=== PATIENT | female | born 1980 | race African-American/Black ===

== ENCOUNTER 2020-01-27 14:11 | Emergency (ER) | payer MEDICAID ==
[~2020-01-27] VITALS: Ht 172.7 cm; Wt 70.3 kg
[2020-01-27] MEDS ORDERED: MEDROL DOSEPAK4 MG ORAL (14:32)
[2020-01-27 14:34] VITALS: BP 114/77
--- NOTE | 2020-01-27 14:37 | NUR ---
ED Nurse Note:pt. came with c/o upper back and shoulders pain for 1 month no injury reported
[2020-01-27] MEDS ORDERED: Ketorolac 30mg Inj IM ONE (14:45)
[2020-01-27] MEDS ORDERED: Methocarbamol 750mg tab ORAL ONE (14:45)
--- NOTE | 2020-01-27 15:03 | Emergency Room Report ---
History of Present Illness General Chief Complaint: Back Pain-No Injury Source: Patient Present Illness HPI 39-year-old female with no signal past medical history here complaining of pain in neck and bilateral shoulders x6 months. Reports that she often lifts heavy objects and has been feeling some numbness intermittently in the arms after lifting boxes. Patient reports that she just moved to [place] from [place] and has not established a primary doctor. Patient denies any fall or injury. Has full range of motion and no bony tenderness noted. No impingement sign noted. Denies chest pain, shortness of breath, headache and dizziness. The pain is localized to upper back mainly the neck and has range of motion. Has not taken medication for symptom relief. Denies . Patient is neurovascularly intact Allergies: Coded Allergies: No Known Allergies (Unverified , 01/27/20) COVID-19 Screening Contact w/high risk pt: No Recent Travel to affected area: No Experienced COVID-19 symptoms?: No COVID-19 Testing performed STAGE PRODUCER: No Patient History Past Medical History: see triage record Past Surgical History: none Pertinent Family History: none Now: No Immunizations: UTD Reviewed Nursing Documentation: PMH: Agreed; PSxH: Agreed Nursing Documentation-PMH Past Medical History: No Stated History Review of Systems All Other Systems: negative except mentioned in HPI Physical Exam Vital Signs Date Time Temp Pulse Resp B/P (MAP) Pulse Ox O2 Delivery O2 Flow Rate FiO2 01/27/20 14:28 98.6 66 18 114/77 (89) 97 Room Air Sp02 EP Interpretation: reviewed, normal General Appearance: no apparent distress, alert, GCS 15, non-toxic Head: normocephalic, atraumatic Eyes: bilateral eye normal inspection, bilateral eye PERRL ENT: hearing grossly normal, normal pharynx, no angioedema, normal voice Neck: full range of motion, supple, thyroid normal, no meningismus, no bony tend, no carotid bruits, supple/symm/no masses Respiratory: chest non-tender, lungs clear, normal breath sounds, speaking full sentences Cardiovascular #1: regular rate, rhythm, no edema Cardiovascular #2: 2+ carotid (R), 2+ carotid (L), 2+ radial (R), 2+ radial (L) Gastrointestinal: normal bowel sounds, non tender, soft, non-distended, no guarding, no rebound Rectal: deferred Genitourinary: no CVA tenderness Musculoskeletal: back normal, normal range of motion, no calf tenderness, pelvis stable, no lower extremity edema, non-tender, other - Patient has range of motion of neck and the bilateral arms and no bony tenderness noted, no impingement sign noted Neurologic: alert, motor strength/tone normal, oriented x3, sensory intact, responsive, speech normal Psychiatric: judgement/insight normal, memory normal, mood/affect normal, no suicidal/homicidal ideation Skin: no rash Lymphatic: no adenopathy Medical Decision Making PA Attestation All diagnoses and treatment plans were reviewed and discussed with my supervising physician Dr. Anderson Diagnostic Impression: Primary Impression: Cervical strain ER Course 39-year-old female with no signal past medical history here complaining of pain in neck and bilateral shoulders x6 months. Reports that she often lifts heavy objects and has been feeling some numbness intermittently in the arms after lifting boxes. Patient reports that she just moved to [place] from [place] and has not established a primary doctor. Patient denies any fall or injury. Has full range of motion and no bony tenderness noted. No impingement sign noted. Denies chest pain, shortness of breath, headache and dizziness. The pain is localized to upper back mainly the neck and has range of motion. Has not taken medication for symptom relief. Denies . Patient is neurovascularly intact Ddx considered but are not limited to : Cervical spine sprain versus strain versus fracture versus radiculopathy Vital signs: are WNL, pt. is afebrile H&PE are most consistent with: Cervical strain ORDERS: No x-ray needed at this time his pain is been going on for 6-month there was no bony tenderness and no bony involvement as it was no fall. Robaxin , ibuprofen, lidocaine patch ED INTERVENTIONS: Toradol, Robaxin, lidocaine patch DISCHARGE: At this time pt. is stable for d/c to home. Will provide printed patient care instructions, and any necessary prescriptions. Care plan and follow up instructions have been discussed with the patient prior to discharge. Patient to follow primary doctor for MRI of the neck. Patient understands and agrees with the above treatment. Patient feels better after muscle relaxant and Toradol. If worsening symptoms return to emergency room Last Vital Signs Date Time Temp Pulse Resp B/P (MAP) Pulse Ox O2 Delivery O2 Flow Rate FiO2 01/27/20 14:34 98.6 78 18 114/77 97 Room Air Disposition: HOME, SELF-CARE Condition: Stable Scripts Lidocaine Patch* (Lidoderm Patch*) 1 Each Adh..patch 1 PATCH TOPIC DAILY, #30 PATCH Patch(es) may remain in place for up to 12 hours in any 24-hour period. Prov: Wing Willis 01/27/20 Ibuprofen (Ibu) 800 Mg Tablet 800 MG PO TID, #30 TAB Prov: Wing Willis 01/27/20 Methocarbamol* (ROBAXIN-500*) 500 Mg Tablet 500 MG ORAL TID PRN for For Pain, #15 TAB 0 Refills Prov: Wing Willis 01/27/20 Referrals: NON PHYSICIAN (PCP) Patient Instructions: Cervical Strain and Sprain With [facility] Additional Instructions: Take medication as directed, follow-up with your primary care provider, if worsening symptoms return to the emergency room Wing Willis Jan 27, 2020 15:03
[2020-01-27] MEDS ORDERED: LIDODERM700 M1 TOPIC (15:04)
[2020-01-27] MEDS ORDERED: IBU800 MG PO (15:04)
[2020-01-27] MEDS ORDERED: ROBAXIN-500MG ORAL (15:04)
[2020-01-27 15:15] VITALS: BP 114/77
--- NOTE | 2020-01-27 15:15 | NUR ---
ED Nurse Note: Pt cleared by health care Provider for discharge. DC instructions/prescription was given and explained to pt and verbalized understanding of teachings. All medical deviecs such as ID band removed. Pt is AAO x4, ambulatory and left with all personal belongings.
== END 2020-01-27 15:15 | disposition home or self-care (01) ==
LOC: EMR 14:40
DX: S16.1XXA Strain of muscle, fascia and tendon at neck level, initial encounter (principal); M25.512 Pain in left shoulder; M25.511 Pain in right shoulder; X50.0XXA Overexertion from strenuous movement or load, initial encounter; Y92.9 Unspecified place or not applicable
CPT/HCPCS: 96372; J1885; Z7502; 99283